=== PATIENT | female | born 1955 | race Caucasian/White ===

== ENCOUNTER 2019-10-10 17:30 | Outpatient (CLI) | payer MEDICARE, SELFPAY ==
--- NOTE | ~2019-10-10 | XR_ITS ---
EXAMINATION: XR knee LT 2V DATE: 10/10/2019 17:53 INDICATION: Left knee pain TECHNIQUE: Two views of the left knee were obtained. COMPARISON: None. FINDINGS: Alignment is normal. No fracture or osteochondral lesion. There is mild tricompartmental os teoarthritis characterized by tiny marginal osteophytes. No joint effusion/synovitis. Soft tissues a re unremarkable. IMPRESSION: 1. No acute osseous abnormality. Reviewed, dictated and finalized at location A.
== END 2019-10-10 17:31 | disposition home or self-care (01) ==
PROVIDERS: PCP Internal Medicine; Visit Provider Nurse Practitioner Family
DX: M25.562 Pain in left knee (principal)
CPT/HCPCS: 73560

== ENCOUNTER 2020-03-06 10:52 | Emergency (ER) | payer MEDICARE, SELFPAY ==
[2020-03-06] VITALS (12 sets, daily range): BP systolic 119–150; BP diastolic 64–95; PULSE 68; RESP 20; TEMP 36.9; O2SAT 94–100
--- NOTE | ~2020-03-06 | XR_ITS ---
EXAMINATION: XR chest 1V portable EXAM DATE: 03/06/2020 12:24 INDICATION: Cough and shortness of breath. Weakness. TECHNIQUE: Portable AP frontal chest x-ray was obtained. Comparison is made to prior examination from 05/20/2015. FINDINGS: Relatively low lung volume with some linear right perihilar, left infrahilar opacities prob ably atelectasis. Some pulmonary vascular crowding. Cardiomediastinal silhouette is normal. No confl uent consolidation, pneumothorax or pleural effusion suspected. Cervical fusion hardware. There are mild bony degenerative changes. IMPRESSION: Some linear bibasilar opacities probably atelectasis. Reviewed, dictated and finalized at location A. ICULUM AND ASSESSMENT DIRECTOR
--- NOTE | ~2020-03-06 | CT_ITS ---
EXAMINATION: CT abdomen pelvis w con EXAM DATE: 03/06/2020 14:33 INDICATION: Upper abdominal pain, vomiting . TECHNIQUE: Spiral CT of the abdomen and pelvis was performed following intravenous injection of 100 m L Omnipaque 350. Axial, coronal and sagittal images were reviewed. The dose-length product (DLP) fo r this examination was 903.35 mGy-cm. The exposure was tailored according to patient size (auto mA e xposure control), and iterative reconstruction (ASIR) was used as additional dose reduction technique . There is no prior study for comparison. FINDINGS: The liver, spleen, adrenal glands and pancreas are unremarkable. Gallbladder is unremarkab le. No biliary obstruction. Portal and splenic veins are patent. Kidneys enhance symmetrically. T here is no hydronephrosis. The uterus is unremarkable. The bladder is unremarkable. There is no retroperitoneal or pelvic lymphadenopathy. There is mild scattered arteriosclerotic disease. The appendix is normal. There is small sliding gastroesophageal hiatal hernia. There is colonic flu id, correlate for diarrhea. No free intraperitoneal gas. The heart is normal in size. There are no pericardial or pleural effusions. Dependent bibasilar airspace disease most likely atelectasis. There are no osteoblastic or osteolytic lesions identified. Mild lumbar dextroscoliosis. IMPRESSION: 1. Colonic fluid, correlate for diarrhea. 2. Bibasilar dependent subsegmental atelectasis. Reviewed, dictated and finalized at location A. SSEAU CONSULTANT
--- NOTE | 2020-03-06 11:25 | PC.NURSE ---
resting on stretcher. all checked in. on BP and O2 monitors. waiting for further orders from provider. call light in reach. updated on expected wait time.
--- NOTE | 2020-03-06 12:00 | ECG_ITS ---
Measurements Intervals [place] Rate: 64 P: 114 AK: 138 QRS: -18 QRSD: 95 T: -27 QT: 406 QTc: 421 Interpretive Statements SINUS RHYTHM INCOMPLETE RIGHT BUNDLE BRANCH BLOCK LOW QRS VOLTAGE IN LIMB LEADS BORDERLINE ST-T WAVE ABNORMALITY- DIFFUSE LEADS BASELINE WANDER- I, III, AVL, V4-V6 BORDERLINE ECG Electronically Signed On 03-06-2020 14:19:46 HAND WOODWORKING SANDER by Vince Mcgrath D.O.
[2020-03-06] MEDS: ONDANSETRON INJ 4 MG/2 ML VIAL IV PUSH (12:08)
[2020-03-06] MEDS: LACTATED RINGERS 1,000 ML 999 ML IV CONT (12:08)
[2020-03-06 12:38] LABS: Basophils Percent Auto 0.3 % (0.2-1.2); Eosinophils Percent Auto 0.3 % (0-4.4); Hematocrit 43.2 % (37.0-47.0); Hemoglobin 14.8 g/dL (12.0-15.0); Immature Granulocyte Absolute 0.01 K/mm3 (0.00-0.031); Immature Granulocyte Percent A 0.3 % (0-0.5); Lymphocytes Absolute Auto 0.87 K/mm3 (0.9-3.2); Lymphocytes Percent Auto 23.4 % (18.3-44.2); Mean Corpuscular HGB Conc 34.3 g/dl (32-36); Mean Corpuscular Volume 84.5 fl (80-100); Mean Platelet Volume 11.9 fl (7.4-10.4); Monocytes Absolute Auto 0.6 K/mm3 (0.1-0.6); Monocytes Percent Auto 17.2 % (2.6-8.5); Neutrophils Absolute Auto 2.2 K/mm3 (1.3-6.7); Neutrophils Percent Auto 58.5 % (45.5-73.1); Platelet Count Result 116 k/mm3 (150-375); Red Blood Count 5.11 M/mm3 (4.2-5.4); Red Cell Distribution Width 13.1 % (11.5-14.5); White Blood Count 3.7 K/mm3 (4.5-10.0)
[2020-03-06 12:48] LABS: INR 0.9
[2020-03-06 12:49] LABS: Partial Thromboplastin Time 29.2 SECONDS (22.3-36.8)
[2020-03-06 12:52] LABS: Alanine Aminotransferase 25 U/L (4-35); Albumin Level 4.4 g/dL (3.5-5.1); Alkaline Phosphatase 113 U/L (38-126); Anion Gap 13 mmol/L (8-16); Aspartate Amino Transferase 34 U/L (14-36); Bilirubin,Total 0.5 mg/dL (0.2-1.3); Blood Urea Nitrogen 15 mg/dL (7-17); Calcium 9.1 mg/dL (8.4-10.2); Carbon Dioxide 24 mmol/L (22-30); Chloride 100 mmol/L (98-107); Estimated CRCL calculation 58 ml/min; Estimated Glomerular Filt Rate 56; Glucose 117 mg/dL (65-105); Lipase 177 U/L (23-300); Magnesium 1.8 mg/dL (1.6-2.3); Potassium 3.6 mmol/L (3.4-5.0); Sodium 137 mmol/L (137-145)
--- NOTE | 2020-03-06 13:19 | PC.NURSE ---
called chem, added Trop baseline 1316
[2020-03-06 13:52] LABS: Add Urine Microscopic? YES; Appearance Urine Clear (Clear); Bacteria Urine 2+ /hpf; Bilirubin Urine Negative (Negative); Blood Urine Negative (Negative); Color Urine Yellow (Yellow); Glucose Urine UA Negative (Negative); Ketones Urine Trace mg/dL (Negative); Leukocyte Esterase Ur 3+ LEU/UL (Negative); Mucus Urine Rare /lpf; Nitrate Urine Negative (Negative); Protein Urine Negative (Negative); Specific Grav Ur 1.014 (1.001-1.035); Squamous Epithelial Cell Urine Occasional /hpf (Few); Transitional Epi Cells Urine Rare /hpf (None Seen); Urobilinogen Urine Negative mg/dL (<2.0); WBC Urine 21-30 /hpf
[2020-03-06 13:58] LABS: Troponin I < 0.012 ng/mL (0.000-0.034)
--- NOTE | 2020-03-06 14:03 | ED.NAVMDI ---
HPI - Nausea/Vomiting/Diarrhea General Chief complaint: Nausea/Vomiting/Diarrhea Stated complaint: abd pain/vomiting Time Seen by Provider: 03/06/20 11:24 Source: patient Mode of arrival: ambulatory Limitations: no limitations History of Present Illness HPI Narrative: This patient is a 64 year old female who presents for evaluation nausea, vomiting and diarrhea. She developed nausea and diarrhea Monday. She states she has been unable to eat or drink anything since yesterday when she developed vomiting. She has constant upper abdominal pain. She also reports mild cough and sob but she denies chest pain. She has associated weakness. She states some family members were found to be positive for Covid 1 week ago. Related Data Allergies Allergy/AdvReac Type Severity Reaction Status Date / Time No Known Allergies Allergy Unverified 03/06/20 11:38 Review of Systems Review of Systems: All systems reviewed & are unremarkable except as noted in HPI and below Constitutional: Constitutional: Denies chills and Reports fever(s) Respiratory: Respiratory: Reports cough and Reports dyspnea Gastrointestinal: Gastrointestinal: Reports abdominal pain, Reports diarrhea, Reports nausea and Reports vomiting [facility] Family History Family History (Updated 12/11/17 @ 11:12 by DOCTOR UNKNOWN) Grandparent Diabetes mellitus Sibling Patient's brother is Social History Social History (Updated 03/06/20 @ 09:34 by Muna aSlazar [facility]) Smoking status: Former smoker Alcohol intake: current Exam Const: General: alert and ill appearing Orientation/consciousness: patient oriented x3 HENMT: Head: normocephalic and atraumatic Face and sinus: face symmetric Throat: posterior oropharynx normal, tonsils normal and uvula midline Eyes: EOM: EOMs intact bilaterally Chest: Chest palpation & inspection: normal inspection of the chest Resp: Effort & Inspection: normal respiratory effort and no retractions Auscultation: clear to auscultation bilaterally Cardio: Rate: regular rate Rhythm: regular rhythm Heart sounds: no murmurs GI: GI Palp: Yes Soft to palpation, Yes Tenderness to palpation present (GI) (epigastric), No Guarding due to palpation present (GI), No Rigid due to palpation and No Rebound tenderness present Skin: General skin exam: normal color Rashes: no rashes Neuro: General: patient oriented x3 and moves all extremities Course Reevaluation(s) Reevaluation #1: I discussed with patient that she will be discharged home. She likely has covid. She is able to tolerate fluids. Date: 03/06/20 Time: 15:38 Vital Signs Vital signs: Vital Signs Temperature 98.4 F 03/06/20 11:15 Pulse Rate 68 03/06/20 11:15 Respiratory Rate 20 03/06/20 11:15 Blood Pressure 125/64 03/06/20 11:15 Pulse Oximetry 100 03/06/20 11:15 Temperature 98.4 F 03/06/20 11:15 Pulse Rate 68 03/06/20 11:15 Respiratory Rate 03/06/20 11:15 Blood Pressure 149/74 H 03/06/20 14:25 Pulse Oximetry 98 03/06/20 12:15 MDM - Nausea/Vomiting/Diarrhea Lab Data Attestation: I reviewed the patient's lab results. Result diagrams: 03/06/20 12:05 03/06/20 12:05 Labs: Lab Results 03/06/20 03/06/20 03/06/20 Range/Units 12:05 12:05 12:05 WBC 3.7 L (4.5-10.0) K/mm3 RBC 5.11 (4.2-5.4) M/mm3 Hgb 14.8 (12.0-15.0) g/dL Hct 43.2 (37.0-47.0) % MCV 84.5 (80-100) fl MCH 29.0 (26-34) pg MCHC 34.3 (32-36) g/dl RDW 13.1 (11.5-14.5) % Plt Count 116 L (150-375) k/mm3 MPV 11.9 H (7.4-10.4) fl Immature Gran % (Auto) 0.3 (0-0.5) % Neut % (Auto) 58.5 (45.5-73.1) % Lymph % (Auto) 23.4 (18.3-44.2) % [place] % (Auto) 17.2 H (2.6-8.5) % Eos % (Auto) 0.3 (0-4.4) % Baso % (Auto) 0.3 (0.2-1.2) % Lymph # (Auto) 0.87 L (0.9-3.2) K/mm3 [place] # (Auto) 0.6 (0.1-0.6) K/mm3 Eos # (Auto) 0.0 (0-0.3) K/mm
--- NOTE | 2020-03-06 14:26 | PC.NURSE ---
patient to CT via wheelchair.
--- NOTE | 2020-03-06 14:37 | PC.NURSE ---
patient back in room after CT. no change in condition. waiting for CT results. patient updated on expected wait time.
[2020-03-08 22:23] LABS: SARS-CoV-2 RNA PCR Positive
== END 2020-03-06 16:00 | disposition home or self-care (01) ==
PROVIDERS: Emergency Provider General Practice; PCP Internal Medicine
DX: U07.1 COVID-19 (principal); R11.2 Nausea with vomiting, unspecified; R19.7 Diarrhea, unspecified; N39.0 Urinary tract infection, site not specified; Z87.891 Personal history of nicotine dependence; I45.10 Unspecified right bundle-branch block; R94.31 Abnormal electrocardiogram [ECG] [EKG]; R10.10 Upper abdominal pain, unspecified
CPT/HCPCS: 36415; 71045; 74177; 80053; 81001; 83605; 83690; 83735; 84484; 85025; 85610; 85730; 87086; 87088; 87635; 87804; 93005; 96361; 96374; 99284; C9803; J2405; J7120; Q9967; U0003

== ENCOUNTER 2020-03-14 11:43 | Emergency (ER) | payer MEDICARE, SELFPAY ==
[2020-03-14 11:48] VITALS: BP 147/79; PULSE 82; RESP 18; TEMP 36.1; O2SAT 94
[2020-03-14 12:04] LABS: Basophils Absolute Auto 0.1 K/mm3 (0.0-0.1); Basophils Percent Auto 0.5 % (0.2-1.2); Eosinophils Absolute Auto 0.1 K/mm3 (0-0.3); Eosinophils Percent Auto 1.3 % (0-4.4); Hematocrit 43.5 % (37.0-47.0); Immature Granulocyte Absolute 0.12 K/mm3 (0.00-0.031); Immature Granulocyte Percent A 1.2 % (0-0.5); Lymphocytes Absolute Auto 1.95 K/mm3 (0.9-3.2); Lymphocytes Percent Auto 20.2 % (18.3-44.2); Mean Corpuscular HGB Conc 34.5 g/dl (32-36); Mean Corpuscular Hemoglobin 28.7 pg (26-34); Mean Corpuscular Volume 83.2 fl (80-100); Mean Platelet Volume 10.2 fl (7.4-10.4); Monocytes Absolute Auto 0.9 K/mm3 (0.1-0.6); Monocytes Percent Auto 9.2 % (2.6-8.5); Neutrophils Absolute Auto 6.5 K/mm3 (1.3-6.7); Neutrophils Percent Auto 67.6 % (45.5-73.1); Platelet Count Result 295 k/mm3 (150-375); Red Blood Count 5.23 M/mm3 (4.2-5.4); White Blood Count 9.7 K/mm3 (4.5-10.0)
[2020-03-14 12:20] LABS: Alanine Aminotransferase 22 U/L (4-35); Albumin Level 4.1 g/dL (3.5-5.1); Alkaline Phosphatase 134 U/L (38-126); Anion Gap 16 mmol/L (8-16); Aspartate Amino Transferase 29 U/L (14-36); Blood Urea Nitrogen 14 mg/dL (7-17); Calcium 9.5 mg/dL (8.4-10.2); Carbon Dioxide 22 mmol/L (22-30); Chloride 102 mmol/L (98-107); Estimated CRCL calculation 64 ml/min; Estimated Glomerular Filt Rate > 60; Glucose 121 mg/dL (65-105); Lipase 159 U/L (23-300); Potassium 3.5 mmol/L (3.4-5.0); Sodium 140 mmol/L (137-145)
--- NOTE | 2020-03-14 12:38 | ED.GENADULT ---
HPI - General Adult General Chief complaint: Nausea/Vomiting/Diarrhea Stated complaint: vomiting Time Seen by Provider: 03/14/20 12:14 Source: patient History of Present Illness HPI narrative: Patient is 64 years old white female presents with nausea and vomiting. Patient is telling me that she cannot keep anything down since February 28. COVID-19 was positive on March 06. Patient came to our emergency room on March 06 with the same symptoms, CAT scan of the abdomen and pelvis at that time showed no acute abnormalities. Patient was discharged on Pepcid, Keflex and Zofran. Patient denies any fever, chills, coughing or shortness of breath. Related Data Allergies Allergy/AdvReac Type Severity Reaction Status Date / Time No Known Allergies Allergy Unverified 03/14/20 11:52 Review of Systems Review of Systems: Narrative: CONSTITUTIONAL: Denies fever, chills, or sweats. CARDIOVASCULAR: Denies chest pain, palpitations, or edema. RESPIRATORY: Denies cough or dyspnea. GASTROINTESTINAL: Nausea and vomiting GENITOURINARY: Denies dysuria or hematuria. SKIN: Denies rash or itching. MUSCULOSKELETAL: Denies back pain, joint pain, patient complaining of myalgia NEUROLOGIC: Patient also complaining of headache, and general weakness PSYCHIATRIC: Denies anxiety or depression. [facility] Past Medical History Medical History (Updated 03/14/20 @ 14:00 by Teddy Bustos MD) COVID-19 virus infection Hypertension Family History Family History Grandparent Diabetes mellitus Sibling Patient's brother is Social History Social History Smoking status: Former smoker Alcohol intake: current Gender identity (if verbalized by the patient): Female Exam Narrative: Exam Narrative: General appearance: Well-developed, well-nourished, looks weak Skin: Normal color Head: Normocephalic, nontraumatic Eyes: Clear conjunctiva ENT: Oropharynx normal, ears normal, nose normal Neck: Supple, nontender Chest and respiratory: Airway patent, no respiratory distress, no accessory muscle use Heart: Regular rate/rhythm Abdomen: Soft, mild diffuse tenderness upper abdomen, no organomegaly, quiet bowel sounds Vascular: Normal peripheral pulses, normal capillary refill. Musculoskeletal: Normal range of motion, nontender back Neurologic: Alert and oriented ?3, SHIPPING HELPER is normal as tested, no gross motor deficit Course Course Emergency Course: Stable Reevaluation(s) Reevaluation #1: Patient feeling much better, is able to keep fluid down. Date: 03/14/20 Time: 14:03 Vital Signs Vital signs: Vital Signs Temperature 36.1 C L 03/14/20 11:48 Pulse Rate 82 03/14/20 11:48 Respiratory Rate 18 03/14/20 11:48 Blood Pressure 147/79 H 03/14/20 11:48 Pulse Oximetry 94 03/14/20 11:48 Temperature 36.1 C L 03/14/20 11:48 Pulse Rate 78 03/14/20 14:16 Respiratory Rate 18 03/14/20 14:16 Blood Pressure 122/68 03/14/20 14:16 Pulse Oximetry 99 03/14/20 14:16 Medical Decision Making MDM Narrative Medical decision making narrative: Patient nausea and vomiting high likely secondary to COVID-19 infection. Labs, IV fluid ordered. Oral food and drink challenge ordered. Further plan to follow Differential Diagnosis Differential Diagnosis: Viral gastroenteritis, electrolyte imbalance, dehydration, COVID-19 infection syndrome Vital Signs Vital Signs: Vital Signs Temperature 36.1 C L 03/14/20 11:48 Pulse Rate 82 03/14/20 11:48 Respiratory Rate 18 03/14/20 11:48 Blood Pressure 147/79 H 03/14/20 11:48 Pulse Oximetry 94 03/14/20 11
[2020-03-14] MEDS: ONDANSETRON INJ 4 MG/2 ML VIAL IV PUSH (12:54)
[2020-03-14] MEDS: LORazepam INJ (*CRX) 2 MG/ML VIAL 0.5 MG IV PUSH (12:54)
[2020-03-14] MEDS: SODIUM CHLORIDE 0.9% IV 1,000 ML 999 ML IV CONT (12:55)
[2020-03-14 12:57] VITALS: BP 132/78; PULSE 78; RESP 18; O2SAT 99
[2020-03-14 13:49] LABS: Add Urine Microscopic? YES; Appearance Urine Clear (Clear); Bilirubin Urine Negative (Negative); Blood Urine Negative (Negative); Color Urine Yellow (Yellow); Glucose Urine UA Negative (Negative); Ketones Urine 1+ mg/dL (Negative); Leukocyte Esterase Ur Negative LEU/UL (Negative); Mucus Urine Few /lpf; Nitrate Urine Negative (Negative); Protein Urine 1+ mg/dL (Negative); RBC Urine 0-2 /hpf (0-2); Squamous Epithelial Cell Urine Occasional /hpf (Few); Transitional Epi Cells Urine Rare /hpf (None Seen); WBC Urine 0-3 /hpf
[2020-03-14 14:16] VITALS: BP 122/68; PULSE 78; RESP 18; O2SAT 99
== END 2020-03-14 14:19 | disposition home or self-care (01) ==
PROVIDERS: Emergency Provider Emergency Medicine; PCP Internal Medicine
DX: U07.1 COVID-19 (principal); R11.2 Nausea with vomiting, unspecified; I10 Essential (primary) hypertension; Z87.891 Personal history of nicotine dependence
CPT/HCPCS: 36415; 80053; 81001; 83690; 85025; 96361; 96374; 96375; 99284; J2060; J2405; J7030

== ENCOUNTER 2020-04-13 10:46 | Outpatient (CLI) | payer MEDICARE, SELFPAY ==
[2020-04-13 11:34] LABS: Basophils Absolute Auto 0.1 K/mm3 (0.0-0.1); Basophils Percent Auto 0.9 % (0.2-1.2); Eosinophils Absolute Auto 0.4 K/mm3 (0-0.3); Eosinophils Percent Auto 4.4 % (0-4.4); Hematocrit 42.3 % (37.0-47.0); Hemoglobin 14.2 g/dL (12.0-15.0); Immature Granulocyte Absolute 0.03 K/mm3 (0.00-0.031); Immature Granulocyte Percent A 0.4 % (0-0.5); Lymphocytes Absolute Auto 2.55 K/mm3 (0.9-3.2); Lymphocytes Percent Auto 32.2 % (18.3-44.2); Mean Corpuscular HGB Conc 33.6 g/dl (32-36); Mean Corpuscular Hemoglobin 29.5 pg (26-34); Mean Corpuscular Volume 87.9 fl (80-100); Mean Platelet Volume 10.9 fl (7.4-10.4); Monocytes Absolute Auto 0.8 K/mm3 (0.1-0.6); Neutrophils Absolute Auto 4.1 K/mm3 (1.3-6.7); Neutrophils Percent Auto 52.1 % (45.5-73.1); Platelet Count Result 258 k/mm3 (150-375); Red Blood Count 4.81 M/mm3 (4.2-5.4); Red Cell Distribution Width 15.3 % (11.5-14.5); White Blood Count 7.9 K/mm3 (4.5-10.0)
[2020-04-13 11:52] LABS: Alanine Aminotransferase 42 U/L (4-35); Alkaline Phosphatase 100 U/L (38-126); Anion Gap 7 mmol/L (8-16); Aspartate Amino Transferase 40 U/L (14-36); Bilirubin,Total 0.9 mg/dL (0.2-1.3); Blood Urea Nitrogen 10 mg/dL (7-17); Calcium 9.5 mg/dL (8.4-10.2); Carbon Dioxide 28 mmol/L (22-30); Chloride 106 mmol/L (98-107); Cholesterol 201 mg/dL (0-200); Estimated Glomerular Filt Rate > 60; Glucose 122 mg/dL (65-105); HDL Direct 41 mg/dL; Sodium 141 mmol/L (137-145); Triglycerides 215 mg/dL (<150)
[2020-04-13 12:01] LABS: LDL Cholesterol Direct 121 mg/dL
[2020-04-13 12:56] LABS: Potassium 4.2 mmol/L (3.4-5.0)
[2020-04-14 11:36] LABS: Hemoglobin A1C 5.4 % (<5.7)
== END 2020-04-13 10:47 | disposition home or self-care (01) ==
PROVIDERS: PCP Internal Medicine; Referring Provider Clinical Nurse Specialist; Visit Provider Nurse Practitioner
DX: R73.09 Other abnormal glucose (principal); Z13.228 Encounter for screening for other metabolic disorders; Z13.220 Encounter for screening for lipoid disorders; I10 Essential (primary) hypertension
CPT/HCPCS: 36415; 80053; 80061; 83036; 85025

== ENCOUNTER 2020-05-20 08:44 | Outpatient (CLI) | payer MEDICARE, SELFPAY ==
--- NOTE | ~2020-05-20 | DEXA_ITS ---
Bone Density Report Name: Makenzie Blanco Age: 64 Sex: Female Ethnicity: White Date of : 1955 Indication: postmenopausal; height loss; Referring Provider: Leslie Bassett Study: Bone densitometry was performed. Exam Date: May 20, 2020 Accession number: [id number] Bone Density: Region BMD T-score Z-score Classification AP Spine (L1-L4) 0.948 -0.9 0.8 Normal Femoral Neck (Left) 0.804 -0.4 1.0 Normal Total Hip (Left) 0.939 0.0 1.1 Normal Total Hip Bilateral Avg 0.922 -0.2 1.0 Normal Femoral Neck (Right) 0.806 -0.4 1.0 Normal Total Hip (Right) 0.905 -0.3 0.8 Normal World Health Organization criteria for BMD impression classify patients as: Normal (T-score at or above -1.0), Osteopenia (T-score between -1.0 and -2.5), or Osteoporosis (T-score at or below -2.5). 10-year Fracture Risk: FRAX not reported because: All T-scores for Spine Total, Hip Total, Femoral Neck at or above -1.0 Previous Exams: Region Exam Age BMD T-score BMD Change BMD Change Date g/cm2 vs Baseline vs Previous AP Spine(L1-L4) 05/20/2020 64 0.948 -0.9 -0.082(-7.9%)# -0.082(-7.9%)# 09/03/2008 52 1.030 -0.2 Total Hip(Left) 05/20/2020 64 0.939 0.0 -0.139(-12.9%) -0.139(-12.9%) 09/03/2008 52 1.077 1.1 Total Hip(Right) 05/20/2020 64 0.905 -0.3 -0.142(-13.5%) -0.142(-13.5%) 09/03/2008 52 1.046 0.9 *Denotes significance at 95% confidence level, LSC for AP Spine = 0.022 g/cm2, LSC for Total Hip = 0.027 g/cm2 Clinical Information Provided by Patient: Patient maximum height was 66 Menopause Age: 41 No regular weight bearing exercise Onset of menses at age 17 Number of children 0 Impression: The patient has normal bone mass. No significant bone loss was observed. Discussion: BONE DENSITY IS ABOVE THE MINIMUM DESIRABLE LEVEL AT ALL SKELETAL SITES TESTED. This patient?s bone mineral density is above the minimum desirable level (T-score -1.0 or better) at all sites measured. The patient should follow a healthful lifestyle (good nutrition with adequate calcium and vitamin D, and appropriate weight-bearing exercise). Follow-Up: Consider repeating this study in 5 years or sooner if there is some new clinical indication. Reported by: DOHS on 05/20/2020 9:06:00 AM. Reviewed, dictated and finalized at location Sandra CUMMINGS
--- NOTE | ~2020-05-20 | MM_ITS ---
EXAMINATION: MM screening [facility] BI w adelia HISTORY: Screening mammogram TECHNIQUE: Craniocaudal and mediolateral oblique 3-D tomosynthesis images were obtained and synthetic 2-D images were generated. CAD analysis was submitted and interpreted. COMPARISON: 09/03/2008 BREAST PARENCHYMAL COMPOSITION: There are scattered areas of fibroglandular density. FINDINGS: There is no evidence of suspicious mass, calcification, or architectural distortion to sugg est malignancy in either breast. There has been no suspicious interval change. IMPRESSION: 1. No mammographic evidence of malignancy. 2. Recommend routine screening mammography in one year. BI-RADS Category 1: Negative Reviewed, dictated and finalized at location A. RANS SERVICES SPECIALIST
== END 2020-05-20 08:45 | disposition home or self-care (01) ==
LOC: ANHIMG 08:47
PROVIDERS: PCP Internal Medicine; Visit Provider Clinical Nurse Specialist
DX: Z12.31 Encounter for screening mammogram for malignant neoplasm of breast (principal); Z78.0 Asymptomatic menopausal state
CPT/HCPCS: 77063; 77067; 77080

== ENCOUNTER 2020-10-17 11:42 | Outpatient (CLI) | payer MEDICARE, SELFPAY ==
[2020-10-17 12:06] LABS: Anion Gap 9 mmol/L (8-16); Blood Urea Nitrogen 11 mg/dL (7-17); Calcium 9.6 mg/dL (8.4-10.2); Carbon Dioxide 26 mmol/L (22-30); Chloride 106 mmol/L (98-107); Estimated Glomerular Filt Rate 50; Glucose 114 mg/dL (65-105); Potassium 4.3 mmol/L (3.4-5.0); Sodium 141 mmol/L (137-145)
== END 2020-10-17 11:43 | disposition home or self-care (01) ==
PROVIDERS: PCP Internal Medicine; Visit Provider Clinical Nurse Specialist
DX: I10 Essential (primary) hypertension (principal)
CPT/HCPCS: 36415; 80048

== ENCOUNTER 2021-04-29 11:34 | Outpatient (CLI) | payer MEDICARE, SELFPAY ==
[2021-04-29 12:04] LABS: Basophils Absolute Auto 0.1 K/mm3 (0.0-0.1); Basophils Percent Auto 0.9 % (0.2-1.2); Eosinophils Absolute Auto 0.2 K/mm3 (0-0.3); Eosinophils Percent Auto 2.9 % (0-4.4); Hematocrit 39.6 % (37.0-47.0); Hemoglobin 13.3 g/dL (12.0-15.0); Immature Granulocyte Absolute 0.03 K/mm3 (0.00-0.031); Immature Granulocyte Percent A 0.4 % (0-0.5); Lymphocytes Absolute Auto 2.53 K/mm3 (0.9-3.2); Lymphocytes Percent Auto 32.1 % (18.3-44.2); Mean Corpuscular HGB Conc 33.6 g/dl (32-36); Mean Corpuscular Hemoglobin 28.8 pg (26-34); Mean Corpuscular Volume 85.7 fl (80-100); Monocytes Absolute Auto 0.6 K/mm3 (0.1-0.6); Monocytes Percent Auto 7.1 % (2.6-8.5); Neutrophils Absolute Auto 4.5 K/mm3 (1.3-6.7); Neutrophils Percent Auto 56.6 % (45.5-73.1); Platelet Count Result 235 k/mm3 (150-375); Red Blood Count 4.62 M/mm3 (4.2-5.4); Red Cell Distribution Width 13.5 % (11.5-14.5); White Blood Count 7.9 K/mm3 (4.5-10.0)
[2021-04-29 12:19] LABS: Alanine Aminotransferase 20 U/L (4-35); Albumin Level 4.2 g/dL (3.5-5.1); Alkaline Phosphatase 106 U/L (38-126); Anion Gap 12 mmol/L (8-16); Aspartate Amino Transferase 27 U/L (14-36); Bilirubin,Total 0.7 mg/dL (0.2-1.3); Blood Urea Nitrogen 12 mg/dL (7-17); Calcium 9.5 mg/dL (8.4-10.2); Carbon Dioxide 23 mmol/L (22-30); Chloride 104 mmol/L (98-107); Cholesterol 165 mg/dL (0-200); Estimated Glomerular Filt Rate 50; Glucose 120 mg/dL (65-110); HDL Direct 35 mg/dL; Potassium 4.3 mmol/L (3.4-5.0); Sodium 139 mmol/L (137-145); Triglycerides 137 mg/dL (<150)
[2021-04-29 12:29] LABS: LDL Cholesterol Direct 94 mg/dL
== END 2021-04-29 11:35 | disposition home or self-care (01) ==
PROVIDERS: PCP Internal Medicine; Visit Provider Clinical Nurse Specialist
DX: I10 Essential (primary) hypertension (principal); E55.9 Vitamin D deficiency, unspecified
CPT/HCPCS: 36415; 80053; 80061; 82306; 85025

== ENCOUNTER 2021-09-02 09:37 | Outpatient (CLI) | payer MEDICARE, SELFPAY ==
--- NOTE | ~2021-09-02 | MM_ITS ---
EXAMINATION: MM screening [facility] BI w adelia HISTORY: Screening mammogram TECHNIQUE: Craniocaudal and mediolateral oblique 3-D tomosynthesis images were obtained and synthetic 2-D images were generated. CAD analysis was submitted and interpreted. COMPARISON: 05/20/2020, 09/03/2008 BREAST PARENCHYMAL COMPOSITION: There are scattered areas of fibroglandular density. FINDINGS: There is no suspicious mass, calcification, or architectural distortion to suggest malignan cy in either breast. There has been no suspicious interval change. IMPRESSION: 1. No mammographic evidence of malignancy. 2. Recommend routine screening mammography in one year. BI-RADS Category 1: Negative Reviewed, dictated and finalized at location A.
== END 2021-09-02 09:38 | disposition home or self-care (01) ==
PROVIDERS: PCP Internal Medicine; Visit Provider Nurse Practitioner
DX: Z12.31 Encounter for screening mammogram for malignant neoplasm of breast (principal)
CPT/HCPCS: 77063; 77067

== ENCOUNTER 2021-12-24 22:48 | Observation (INO) | payer MEDICARE, SELFPAY ==
--- NOTE | ~2021-12-24 | CT_ITS ---
EXAMINATION: CT abdomen pelvis wo con DATE: 12/25/2021 02:28 INDICATION: Epigastric abdominal pain. Nausea, vomiting, diarrhea. TECHNIQUE: Computed tomography (CT) of the abdomen and pelvis was performed without intravenous contr ast. Automated exposure control and iterative reconstruction technique were employed. Exam dose: 953 .04 mGy-cm total exam DLP. COMPARISON: 03/06/2020 CT abdomen pelvis with IV contrast material FINDINGS: There is minimal discoid atelectasis or scarring in the lower lung zones. Normal heart size. No pericardial or pleural effusion. Small sliding hiatal hernia. The liver, gallbladder, bile ducts, pancreas, pancreatic duct and spleen are unremarkable. Normal morphology of the adrenal glands. Chronic mild left renal scarring. No renal mass lesion or urinary tract calculus or hydroureteronephr osis is evident. The urinary bladder is relatively evacuated. Normal caliber of the abdominal aorta. No intraperitoneal or retroperitoneal or pelvic mass lesion or adenopathy or ascites. Uterus and adnexal areas are unremarkable. Normal appendix. No bowel obstruction. No bowel wall thickening, pneumatosis or intraperitoneal free air. Numerous small shotty lymph nodes are noted in the ileocecal area. Moderate degenerative changes of the thoracic and lumbar spine. IMPRESSION: Mild chronic left renal scarring Small sliding hiatal hernia Nonspecific small shotty lymph nodes in the ileocecal region Normal appendix Reviewed, dictated and finalized at Location A. Reviewed, dictated and finalized at location A.
[2021-12-24 22:52] VITALS: BP 142/85; PULSE 80; RESP 18; TEMP 36.6; O2SAT 98
--- NOTE | 2021-12-24 23:00 | ECG_ITS ---
Measurements Intervals [place] Rate: 65 P: 39 NH: 152 QRS: 10 QRSD: 98 T: 15 QT: 430 QTc: 448 Interpretive Statements SINUS RHYTHM INCOMPLETE RIGHT BUNDLE BRANCH BLOCK BORDERLINE ST-T WAVE ABNORMALITY- ANT/INF LEADS BORDERLINE ECG COMPARED TO ECG 03/06/2020 12:11:42 NO SIGNIFICANT CHANGES Electronically Signed On 12-25-2021 7:03:05 CDT by Vince Mcgrath D.O.
[2021-12-24 23:21] LABS: Basophils Absolute Auto 0.1 K/mm3 (0.0-0.1); Basophils Percent Auto 0.7 % (0.2-1.2); Eosinophils Absolute Auto 0.1 K/mm3 (0-0.3); Eosinophils Percent Auto 0.9 % (0-4.4); Hematocrit 45.4 % (37.0-47.0); Hemoglobin 15.4 g/dL (12.0-15.0); Immature Granulocyte Absolute 0.07 K/mm3 (0.00-0.031); Immature Granulocyte Percent A 0.8 % (0-0.5); Lymphocytes Absolute Auto 2.62 K/mm3 (0.9-3.2); Lymphocytes Percent Auto 29.6 % (18.3-44.2); Mean Corpuscular HGB Conc 33.9 g/dl (32-36); Mean Corpuscular Hemoglobin 27.9 pg (26-34); Mean Corpuscular Volume 82.2 fl (80-100); Mean Platelet Volume 10.5 fl (7.4-10.4); Monocytes Absolute Auto 1.5 K/mm3 (0.1-0.6); Monocytes Percent Auto 17.2 % (2.6-8.5); Neutrophils Absolute Auto 4.5 K/mm3 (1.3-6.7); Neutrophils Percent Auto 50.8 % (45.5-73.1); Platelet Count Result 277 k/mm3 (150-375); Red Blood Count 5.52 M/mm3 (4.2-5.4); White Blood Count 8.8 K/mm3 (4.5-10.0)
[2021-12-24 23:32] LABS: Alanine Aminotransferase 18 U/L (6-35); Albumin Level 4.7 g/dL (3.5-5.1); Alkaline Phosphatase 139 U/L (38-126); Anion Gap 22 mmol/L (8-16); Aspartate Amino Transferase 21 U/L (14-36); Bilirubin,Total 0.9 mg/dL (0.2-1.3); Blood Urea Nitrogen 26 mg/dL (7-17); Calcium 9.2 mg/dL (8.4-10.2); Carbon Dioxide 16 mmol/L (22-30); Chloride 99 mmol/L (98-107); Estimated CRCL calculation 31 ml/min; Estimated Glomerular Filt Rate 28; Glucose 120 mg/dL (65-110); Lipase 270 U/L (23-300); Potassium 3.1 mmol/L (3.4-5.0); Sodium 137 mmol/L (137-145)
[2021-12-24 23:57] LABS: SARS-CoV-2 RNA PCR Negative
[2021-12-25] VITALS (8 sets, daily range): BP systolic 120–155; BP diastolic 62–73; PULSE 56–64; RESP 16–20; TEMP 36.1–37.1; O2SAT 97–100; BMI 32.3
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
[2021-12-25] MEDS: SODIUM CHLORIDE 0.9% IV 1,000 ML 999 ML IV CONT ×2 (02:20→03:40)
[2021-12-25] MEDS: ONDANSETRON INJ 4 MG/2 ML VIAL IV PUSH (02:21)
[2021-12-25 02:25] LABS: Appearance Urine Clear (Clear); Bilirubin Urine 2+ (Negative); Color Urine Yellow (Yellow); Glucose Urine UA Negative (Negative); Ketones Urine Trace mg/dL (Negative); Leukocyte Esterase Ur Trace LEU/UL (Negative); Nitrate Urine Negative (Negative); Protein Urine Trace mg/dL (Negative); Urobilinogen Urine 0.2 mg/dL (<2.0); pH Urine 5.5 (5.0-9.0)
[2021-12-25 02:26] LABS: Troponin I < 0.012 ng/mL (0.000-0.034)
[2021-12-25 02:31] LABS: Add Urine Microscopic? YES; Bacteria Urine 1+ /hpf; Blood Urine Trace-Intact (Negative); Mucus Urine Rare /lpf; Squamous Epithelial Cell Urine Rare /hpf (Few); WBC Urine 21-30 /hpf
[2021-12-25] MEDS: POTASSIUM CHLORIDE INJ 40 MEQ in SODIUM CHLORIDE 0.9% IV 500 ML 130 MEQ IVPB (03:40)
[2021-12-25] MEDS: SODIUM CHLORIDE 0.9% IV 1,000 ML 125 ML IV CONT ×3 (05:39→21:12)
--- NOTE | 2021-12-25 05:49 | ADMGEN ---
This patient, Makenzie Blanco, was admitted to [facility] Surg Room 322-02. Patient/family oriented to hospital policies and general routines including ID bracelet, bed and alarms, visiting hours, pain management, procedures, bathroom and other care routines, personal items, smoking policy, room service/diet, and visiting hours. Information on how to activate the Rapid Response Team has been discussed. Patient/Family are encouraged to report perceived risks to care and to ask questions if they do not understand what they are told or what they should do.
[2021-12-25] MEDS: PANTOPRAZOLE SODIUM IV 40 MG VIAL IV PUSH (06:00)
[2021-12-25] MEDS: METOPROLOL SUCCINATE EXT REL 100 MG TABCR BY MOUTH (09:55)
[2021-12-25] MEDS: ACIDOPHILUS/BULGARICUS CHEWABLE TABLET 1 TABLET PO (09:56)
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
[2021-12-25 16:33] LABS: Anion Gap 11 mmol/L (8-16); Blood Urea Nitrogen 19 mg/dL (7-17); Calcium 7.8 mg/dL (8.4-10.2); Carbon Dioxide 20 mmol/L (22-30); Chloride 109 mmol/L (98-107); Estimated CRCL calculation 39 ml/min; Estimated Glomerular Filt Rate 38; Glucose 101 mg/dL (65-110); Potassium 4.1 mmol/L (3.4-5.0); Sodium 140 mmol/L (137-145)
[2021-12-25 19:14] LABS: Toxigenic C. Diff NEGATIVE (NEGATIVE)
[2021-12-25] MEDS: ACETAMINOPHEN 325 MG TABLET 650 MG PO (23:27)
[2021-12-26 01:30] VITALS: BP 131/74; PULSE 58; RESP 20; TEMP 35.8; O2SAT 97
[2021-12-26] MEDS: SODIUM CHLORIDE 0.9% IV 1,000 ML 125 ML IV CONT (05:28)
[2021-12-26 06:00] VITALS: BP 146/70; PULSE 55; RESP 14; TEMP 36.7; O2SAT 97
[2021-12-26 08:29] LABS: Basophils Absolute Auto 0.1 K/mm3 (0.0-0.1); Basophils Percent Auto 0.8 % (0.2-1.2); Eosinophils Absolute Auto 0.2 K/mm3 (0-0.3); Eosinophils Percent Auto 2.3 % (0-4.4); Hematocrit 36.5 % (37.0-47.0); Hemoglobin 11.6 g/dL (12.0-15.0); Immature Granulocyte Absolute 0.12 K/mm3 (0.00-0.031); Immature Granulocyte Percent A 1.6 % (0-0.5); Lymphocytes Absolute Auto 2.71 K/mm3 (0.9-3.2); Lymphocytes Percent Auto 35.1 % (18.3-44.2); Mean Corpuscular HGB Conc 31.8 g/dl (32-36); Mean Corpuscular Hemoglobin 28.5 pg (26-34); Mean Corpuscular Volume 89.7 fl (80-100); Mean Platelet Volume 11.1 fl (7.4-10.4); Monocytes Absolute Auto 0.9 K/mm3 (0.1-0.6); Monocytes Percent Auto 11.9 % (2.6-8.5); Neutrophils Absolute Auto 3.7 K/mm3 (1.3-6.7); Neutrophils Percent Auto 48.3 % (45.5-73.1); Platelet Count Result 172 k/mm3 (150-375); Red Blood Count 4.07 M/mm3 (4.2-5.4); Red Cell Distribution Width 14.6 % (11.5-14.5); White Blood Count 7.7 K/mm3 (4.5-10.0)
[2021-12-26 08:47] LABS: Alanine Aminotransferase 11 U/L (6-35); Albumin Level 2.8 g/dL (3.5-5.1); Alkaline Phosphatase 69 U/L (38-126); Anion Gap 10 mmol/L (8-16); Aspartate Amino Transferase 18 U/L (14-36); Bilirubin,Total 0.4 mg/dL (0.2-1.3); Blood Urea Nitrogen 14 mg/dL (7-17); Carbon Dioxide 18 mmol/L (22-30); Chloride 112 mmol/L (98-107); Estimated CRCL calculation 54 ml/min; Estimated Glomerular Filt Rate 56; Glucose 90 mg/dL (65-110); Magnesium 1.7 mg/dL (1.6-2.3); Potassium 4.1 mmol/L (3.4-5.0); Sodium 140 mmol/L (137-145)
[2021-12-26 09:00] VITALS: PULSE 68
[2021-12-26] MEDS: METOPROLOL SUCCINATE EXT REL 100 MG TABCR BY MOUTH (09:00)
[2021-12-26] MEDS: PANTOPRAZOLE 40 MG TABLET PO (09:01)
[2021-12-26] MEDS: ACIDOPHILUS/BULGARICUS CHEWABLE TABLET 1 TABLET PO (09:01)
--- NOTE | 2021-12-26 13:26 | PM.DS ---
DS: Admitting Diagnosis Discharge Date 12/26/2021 Admitting Diagnosis weakness DS: Discharge Diagnosis Discharge Diagnosis (1) UTI (urinary tract infection): Qualifiers: Hematuria presence: with hematuria Urinary tract infection type: acute cystitis Qualified Code(s): N30.01 - Acute cystitis with hematuria Code(s): N39.0 - Urinary tract infection, site not specified Status: Acute (2) Acute kidney injury: Code(s): N17.9 - Acute kidney failure, unspecified Status: Acute (3) Dehydration: Code(s): E86.0 - Dehydration Status: Acute (4) Hypertension: Qualifiers: Hypertension type: primary hypertension Qualified Code(s): I10 - Essential (primary) hypertension Code(s): I10 - Essential (primary) hypertension Status: Acute DS: Summary Hospital Course Hospital Course: # abdominal pain nausea vomiting and diarrhea Likely acute gastroenteritis.? CT abdomen pelvis without any acute intra-abdominal findings. this has resolved. C diff came back negative stool studies are pending. # diarrhea ongoing since a week.? Stool studies sent pending results. Except C diff which came back negative # SUKHWINDER creatinine of 1.8 on admission.? Baseline creatinine ranging between 0.9-1.1.? Likely prerenal. IV hydration was started and renal failure resolved with this ? #UTI the she doses no urinary symptoms.? Given ceftriaxone in the ED.? Urine culture has been sent.? Lactic acid was normal.? urine cultures pending. Will change ceftriaxone to Omnicef at discharge ?# hypokalemia replace monitor # hypertension? hold losartan and spironolactone. Were DC spironolactone at discharge. Lower losartan to 50 mg at discharge in resumed at discharge # DVT prophylaxis:? heparin subQ # code status full code Time Spent with Patient Time attestation: Total time spent providing and/or coordinating discharge services: 40 minutes Exam Narrative: GENERAL: well-appearing, not in acute distress HEAD: Normocephalic, atraumatic. NECK: Supple. No adenopathy, no masses. RESPIRATORY: Airway patent, respirations nonlabored. Clear to auscultation bilaterally, no rales, rhonchi, wheezing. CARDIOVASCULAR: Regular rate and rhythm without murmurs, rubs, or gallops. Peripheral pulses 2+ and equal bilaterally. ABDOMINAL: Soft, mild diffuse tenderness particularly in the epigastric area, Nondistended, no hepatosplenomegaly. Normoactive BS. MUSCULOSKELETAL: Moves all extremities. Strength/ROM intact without gross deformities. SKIN: Warm, dry, normal color. No rashes. NEURO: A&O X3. Speech clear. Cranial nerves II-XII grossly intact. Steady gait. No ataxic movements. PSYCHIATRIC: Appropriate mood and affect. Normal interaction. DS: Data Data Completed and Pending Labs on day of discharge: Labs from last 24 hours 12/26/21 12/26/21 12/25/21 07:41 07:41 18:10 WBC 7.7 RBC 4.07 L Hgb 11.6 L D Hct 36.5 L MCV 89.7 D MCH 28.5 MCHC 31.8 L RDW 14.6 H Plt Count 172 MPV 11.1 H Immature Gran % (Auto) 1.6 H Neut % (Auto) 48.3 Lymph % (Auto) 35.1 Johnston % (Auto) 11.9 H Eos % (Auto) 2.3 Baso % (Auto) 0.8 Lymph # (Auto) 2.71 Johnston # (Auto) 0.9 H Eos # (Auto) 0.2 Baso # (Auto) 0.1 Abs Immat Gran (auto) 0.12 H Absolute Neuts (auto) 3.7 Absolute Nucleated RBC 0.0 Nucleated RBC % 0.0 % Immature Plt Fraction 4.0 Sodium 140 Potassium 4.1 Chloride 112 H Carbon Dioxide 18 L Anion Gap 10 BUN 14 D Creatinine 1.00 Estim Creat Clear Calc 54 Estimated GFR 56 L Glucose 90 Calcium 8.0 L Magnesium 1.7 Total Bilirubin 0.4 AST 18 ALT 11 Alkaline Phosphatase 69 Total Protein 5.0 L Albumin 2.8 L C. difficile (PCR) Ova & Parasites Pending 12/25/21 12/25/21 18:10 16:15 WBC RBC Hgb Hct MCV MCH MCHC RDW Plt Count MPV Immature Gran % (Auto) Neut % (Aut
== END 2021-12-26 14:10 | disposition home or self-care (01) ==
LOC: ANHED 12-25 04:13 → ANH3MEDSUR 12-25 04:59
PROVIDERS: Emergency Medicine; Physician Assistant; Admitting Provider Internal Medicine; Emergency Provider Emergency Medicine; PCP Internal Medicine; Visit Provider Internal Medicine
DX: N30.01 Acute cystitis with hematuria (principal); N17.9 Acute kidney failure, unspecified; E86.0 Dehydration; I10 Essential (primary) hypertension; K44.9 Diaphragmatic hernia without obstruction or gangrene; R59.9 Enlarged lymph nodes, unspecified; I45.10 Unspecified right bundle-branch block; Z20.822 Contact with and (suspected) exposure to COVID-19; R19.7 Diarrhea, unspecified; R10.9 Unspecified abdominal pain; R51.9 Headache, unspecified; E78.5 Hyperlipidemia, unspecified; E66.9 Obesity, unspecified; Z68.32 Body mass index [BMI] 32.0-32.9, adult; Z86.16 Personal history of COVID-19; Z87.891 Personal history of nicotine dependence; Z79.899 Other long term (current) drug therapy
CPT/HCPCS: 36415; 74176; 80048; 80053; 81001; 83605; 83690; 83735; 84484; 85025; 85055; 87040; 87045; 87077; 87086; 87177; 87186; 87209; 87269; 87272; 87427; 87493; 89055; 93005; 96361; 96365; 96366; 96367; 96375; 96376; 99285; A9270; C9113; C9803; G0378; J0131; J0696; J2405; J3480; J7030; J7040; U0003; U0005

== ENCOUNTER 2022-01-21 10:23 | Outpatient (CLI) | payer MEDICARE, SELFPAY ==
[2022-01-21 10:37] LABS: Basophils Absolute Auto 0.1 K/mm3 (0.0-0.1); Eosinophils Absolute Auto 0.2 K/mm3 (0-0.3); Eosinophils Percent Auto 2.9 % (0-4.4); Hematocrit 38.8 % (37.0-47.0); Hemoglobin 12.7 g/dL (12.0-15.0); Immature Granulocyte Absolute 0.01 K/mm3 (0.00-0.031); Immature Granulocyte Percent A 0.1 % (0-0.5); Lymphocytes Percent Auto 35.7 % (18.3-44.2); Mean Corpuscular HGB Conc 32.7 g/dl (32-36); Mean Corpuscular Hemoglobin 29.1 pg (26-34); Mean Corpuscular Volume 88.8 fl (80-100); Monocytes Absolute Auto 0.8 K/mm3 (0.1-0.6); Monocytes Percent Auto 10.7 % (2.6-8.5); Neutrophils Absolute Auto 3.6 K/mm3 (1.3-6.7); Neutrophils Percent Auto 49.6 % (45.5-73.1); Platelet Count Result 204 k/mm3 (150-375); Red Blood Count 4.37 M/mm3 (4.2-5.4); Red Cell Distribution Width 14.5 % (11.5-14.5); White Blood Count 7.3 K/mm3 (4.5-10.0)
[2022-01-21 11:04] LABS: Alanine Aminotransferase 29 U/L (6-35); Albumin Level 4.1 g/dL (3.5-5.1); Alkaline Phosphatase 106 U/L (38-126); Anion Gap 13 mmol/L (8-16); Aspartate Amino Transferase 34 U/L (14-36); Bilirubin,Total 0.6 mg/dL (0.2-1.3); Blood Urea Nitrogen 14 mg/dL (7-17); Calcium 9.1 mg/dL (8.4-10.2); Carbon Dioxide 26 mmol/L (22-30); Chloride 102 mmol/L (98-107); Estimated Glomerular Filt Rate 56; Glucose 109 mg/dL (65-110); Potassium 4.3 mmol/L (3.4-5.0); Sodium 141 mmol/L (137-145)
[2022-01-21 11:05] LABS: Appearance Urine Clear (Clear); Bilirubin Urine Negative (Negative); Blood Urine Trace-intact (Negative); Color Urine Yellow (Yellow); Glucose Urine UA Negative (Negative); Ketones Urine Negative (Negative); Leukocyte Esterase Ur Trace LEU/UL (Negative); Nitrate Urine Negative (Negative); Protein Urine Negative (Negative); Specific Grav Ur 1.015 (1.001-1.035); Urobilinogen Urine 0.2 mg/dL (<2.0)
[2022-01-21 11:11] LABS: Add Urine Microscopic? YES
[2022-01-21 11:19] LABS: RBC Urine 0-2 /hpf (0-2); Squamous Epithelial Cell Urine Occasional /hpf (Few); WBC Urine 0-3 /hpf
== END 2022-01-21 10:24 | disposition home or self-care (01) ==
PROVIDERS: PCP Internal Medicine; Visit Provider Clinical Nurse Specialist
DX: R74.01 Elevation of levels of liver transaminase levels (principal); N39.0 Urinary tract infection, site not specified; I10 Essential (primary) hypertension
CPT/HCPCS: 36415; 80053; 81001; 85025

== ENCOUNTER → 2022-03-17 11:52 | Outpatient (CLI) | payer MEDICARE, SELFPAY ==
--- NOTE | ~2022-03-17 | XR_ITS ---
XR knee LT 3V DATE: 03/17/2022 12:15 INDICATION: Left knee pain, popping, locking TECHNIQUE: 3 views COMPARISON: 10/10/2019 left knee FINDINGS: There is slight periarticular spurring of the patella. There is mild particular spurring at the medial compartment. Joint spaces appear relatively well preserved. No radiopaque intra-articular loose body or chondrocalcinosis is detected. No fracture or dislocation or joint effusion. No periosteal reaction or bone destruction. IMPRESSION: Mild osteoarthritis Reviewed, dictated and finalized at location B. MICIST IMPRESSION: Mild osteoarthritis
== END ==
PROVIDERS: PCP Clinical Nurse Specialist; Visit Provider Clinical Nurse Specialist
DX: M17.12 Unilateral primary osteoarthritis, left knee (principal)
CPT/HCPCS: 73562

== ENCOUNTER 2022-05-27 09:30 | Outpatient (CLI) | payer MEDICARE, SELFPAY ==
--- NOTE | ~2022-05-27 | XR_ITS ---
EXAMINATION: XR knee RT 2V DATE: 05/27/2022 09:57 INDICATION: Right knee pain TECHNIQUE: Two views of the right knee were obtained. COMPARISON: 07/21/2015 FINDINGS: Alignment is normal. No fracture or osteochondral lesion. There is mild tricompartmental os teoarthritis characterized by tiny marginal osteophytes. No joint effusion/synovitis. Soft tissues a re unremarkable. IMPRESSION: 1. Osteoarthritis without acute osseous abnormality. Reviewed, dictated and finalized at location B. HEMODIALYSIS
== END 2022-05-27 09:31 | disposition home or self-care (01) ==
LOC: ANHIMG 09:33
PROVIDERS: PCP Internal Medicine; Visit Provider Nurse Practitioner Family
DX: M17.11 Unilateral primary osteoarthritis, right knee (principal)
CPT/HCPCS: 73560

== ENCOUNTER 2022-10-25 08:44 | Outpatient (CLI) | payer MEDICARE, SELFPAY ==
[2022-10-25 09:06] LABS: Basophils Absolute Auto 0.1 K/mm3 (0.0-0.1); Eosinophils Absolute Auto 0.2 K/mm3 (0-0.3); Eosinophils Percent Auto 3.2 % (0-4.4); Hematocrit 40.6 % (37.0-47.0); Immature Granulocyte Absolute 0.02 K/mm3 (0.00-0.031); Immature Granulocyte Percent A 0.3 % (0-0.5); Lymphocytes Absolute Auto 2.75 K/mm3 (0.9-3.2); Lymphocytes Percent Auto 37.7 % (18.3-44.2); Mean Corpuscular Hemoglobin 28.8 pg (26-34); Mean Corpuscular Volume 89.8 fl (80-100); Mean Platelet Volume 10.9 fl (7.4-10.4); Monocytes Absolute Auto 0.7 K/mm3 (0.1-0.6); Neutrophils Absolute Auto 3.6 K/mm3 (1.3-6.7); Neutrophils Percent Auto 48.8 % (45.5-73.1); Platelet Count Result 193 k/mm3 (150-375); Red Blood Count 4.52 M/mm3 (4.2-5.4); White Blood Count 7.3 K/mm3 (4.5-10.0)
[2022-10-25 09:18] LABS: Alanine Aminotransferase 27 U/L (6-35); Albumin Level 3.9 g/dL (3.5-5.1); Alkaline Phosphatase 104 U/L (38-126); Anion Gap 2 mmol/L (8-16); Aspartate Amino Transferase 30 U/L (14-36); Bilirubin,Total 0.7 mg/dL (0.2-1.3); Blood Urea Nitrogen 13 mg/dL (7-17); Calcium 8.9 mg/dL (8.4-10.2); Carbon Dioxide 30 mmol/L (22-30); Chloride 104 mmol/L (98-107); Cholesterol 206 mg/dL (0-200); Estimated Glomerular Filt Rate > 60; Glucose 114 mg/dL (65-110); HDL Direct 38 mg/dL; Potassium 4.4 mmol/L (3.4-5.0); Sodium 136 mmol/L (137-145); Triglycerides 170 mg/dL (<150)
[2022-10-25 09:30] LABS: LDL Cholesterol Direct 116 mg/dL
[2022-10-25 09:40] LABS: Vitamin D 25 Hydroxy 55.1 ng/mL
[2022-10-25 16:18] LABS: Hemoglobin A1C 5.5 % (<5.7)
== END 2022-10-25 08:45 | disposition home or self-care (01) ==
LOC: ANHLAB 08:44
PROVIDERS: PCP Internal Medicine; Visit Provider Clinical Nurse Specialist
DX: I10 Essential (primary) hypertension (principal); E55.9 Vitamin D deficiency, unspecified; E78.5 Hyperlipidemia, unspecified; R73.9 Hyperglycemia, unspecified
CPT/HCPCS: 36415; 80053; 80061; 82306; 83036; 85025

== ENCOUNTER 2022-11-02 13:34 | Outpatient (CLI) | payer MEDICARE, SELFPAY ==
--- NOTE | ~2022-11-02 | MM_ITS ---
EXAMINATION: MM screening [facility] BI w adelia HISTORY: Screening TECHNIQUE: Craniocaudal and mediolateral oblique 3-D tomosynthesis images were obtained and synthetic 2-D images were generated. CAD analysis was submitted and interpreted. COMPARISON: Comparison to multiple prior studies sequentially, with oldest reviewed study dated 06/2020. BREAST PARENCHYMAL COMPOSITION: There are scattered areas of fibroglandular density. FINDINGS: There is no evidence of suspicious mass, calcification, or architectural distortion to sugg est malignancy in either breast. There has been no suspicious interval change. IMPRESSION: 1. No mammographic evidence of malignancy. 2. Recommend routine screening mammography in one year. BI-RADS Category 1: Negative Reviewed, dictated and finalized at location A.
== END 2022-11-02 13:35 | disposition home or self-care (01) ==
LOC: ANHIMG 13:35
PROVIDERS: PCP Internal Medicine; Visit Provider Nurse Practitioner
DX: Z12.31 Encounter for screening mammogram for malignant neoplasm of breast (principal)
CPT/HCPCS: 77063; 77067

== ENCOUNTER 2022-11-10 09:10 | Outpatient (CLI) | payer MEDICARE, SELFPAY ==
--- NOTE | ~2022-11-10 | CT_ITS ---
CT Scan of the Chest without Contrast: Clinical Indication: Lung cancer screening, smoking history Technique: Contiguous sections were acquired throughout the chest without intravenous contrast. Dose reduction technique was used on this scan by utilizing automated exposure control and iterative recon struction technique. The dose-length product (DLP) was 175.55 mGy-cm. Findings: There is no evidence of any significant mediastinal, hilar or axillary lymphadenopathy. The mediastin al soft tissues appear normal. There is no evidence of pleural or pericardial effusion. 5 mm right upper lobe groundglass nodule noted (axial image 32). Calcified right upper lobe granuloma noted. Images through the upper abdomen reveal no abnormalities. Impression: Lung RADS 2: Benign appearance. 12 month follow-up screening CT advised. Reviewed, dictated and finalized at location . Impression: Lung RADS 2: Benign appearance. 12 month follow-up screening CT advised.
== END 2022-11-10 09:11 | disposition home or self-care (01) ==
PROVIDERS: PCP Internal Medicine; Visit Provider Nurse Practitioner
DX: Z12.2 Encounter for screening for malignant neoplasm of respiratory organs (principal); Z87.891 Personal history of nicotine dependence
CPT/HCPCS: 71271

== ENCOUNTER 2023-04-04 07:34 | Outpatient (CLI) | payer MEDICARE, SELFPAY ==
[2023-04-04 08:19] LABS: Alanine Aminotransferase 17 U/L (6-35); Albumin Level 4.1 g/dL (3.5-5.1); Alkaline Phosphatase 111 U/L (38-126); Anion Gap 7 mmol/L (8-16); Aspartate Amino Transferase 24 U/L (14-36); Bilirubin,Total 0.8 mg/dL (0.2-1.3); Blood Urea Nitrogen 14 mg/dL (7-17); Calcium 9.5 mg/dL (8.4-10.2); Carbon Dioxide 26 mmol/L (22-30); Chloride 106 mmol/L (98-107); Estimated Glomerular Filt Rate > 60; Glucose 105 mg/dL (65-110); Potassium 4.4 mmol/L (3.4-5.0); Sodium 139 mmol/L (137-145)
== END 2023-04-04 07:35 | disposition home or self-care (01) ==
PROVIDERS: PCP Internal Medicine; Visit Provider Nurse Practitioner
DX: R94.4 Abnormal results of kidney function studies (principal)
CPT/HCPCS: 36415; 80053

== ENCOUNTER 2023-08-03 12:00 | Outpatient (CLI) | payer MEDICARE, SELFPAY ==
--- NOTE | ~2023-08-03 | XR_ITS ---
Right wrist Technique: PA and lateral views were obtained. Clinical History: Pain Findings: No acute fracture or dislocation is seen. Osseous alignment is anatomic. There is mild dege nerative change of the triscaphe joint. Soft tissues are unremarkable. Impression: Mild degenerative change of the triscaphe joint. Reviewed, dictated and finalized at [facility]. Impression: Mild degenerative change of the triscaphe joint.
--- NOTE | ~2023-08-03 | XR_ITS ---
Left wrist Technique: PA and lateral views were obtained. Clinical History: Pain Findings: No acute fracture or dislocation is seen. Osseous alignment is anatomic. There is moderate degenerative change of the triscaphe joint. Soft tissues are unremarkable. Impression: Moderate degenerative change at the triscaphe joint. Reviewed, dictated and finalized at [facility]. Impression: Moderate degenerative change at the triscaphe joint.
== END 2023-08-03 12:01 | disposition home or self-care (01) ==
LOC: ANHIMG 12:01
PROVIDERS: PCP Internal Medicine; Visit Provider Nurse Practitioner Family
DX: M25.532 Pain in left wrist (principal)
CPT/HCPCS: 73100

== ENCOUNTER 2024-03-05 08:27 | Outpatient (CLI) | payer MEDICARE, SELFPAY ==
--- NOTE | ~2024-03-05 | XR_ITS ---
XR ankle RT 2V Ordering provider: Christiane Malave, STAINED GLASS ARTIST-C History: . pain in right foot, ankle and joints of right foot . Comparison: None. FINDINGS: BONES: No acute fracture or dislocation. Calcaneal spur. JOINT SPACES: Normal. SOFT TISSUES: Normal. IMPRESSION: No acute osseous abnormality of the right ankle. Reviewed, dictated and finalized at location A. INSOLE CHANNELER
== END 2024-03-05 08:28 | disposition home or self-care (01) ==
PROVIDERS: PCP Internal Medicine; Visit Provider Nurse Practitioner Family
DX: M79.671 Pain in right foot (principal); M25.571 Pain in right ankle and joints of right foot
CPT/HCPCS: 73600

== ENCOUNTER 2024-03-12 10:19 | Outpatient (CLI) | payer MEDICARE, SELFPAY ==
--- NOTE | ~2024-03-12 | XR_ITS ---
XR foot RT 2V Ordering provider: Christiane Malave, INJECTION MOULDING MACHINE OPERATOR-C History: . Pain in R foot . Comparison: None. FINDINGS: BONES: No acute fracture or dislocation. Calcaneal spur. JOINT SPACES: Narrowing of the proximal and distal interphalangeal joints. No tarsal coalition. SOFT TISSUES: Normal. IMPRESSION: No acute osseous abnormality of the right foot. Mild Osteoarthritic changes of the proximal and distal interphalangeal joints. Reviewed, dictated and finalized at location A. POURER
== END 2024-03-12 10:20 | disposition home or self-care (01) ==
PROVIDERS: PCP Internal Medicine; Visit Provider Nurse Practitioner Family
DX: M19.071 Primary osteoarthritis, right ankle and foot (principal)
CPT/HCPCS: 73620

== ENCOUNTER 2024-05-23 11:03 | Outpatient (CLI) | payer MEDICARE, SELFPAY ==
--- OUTSIDE RECORDS SUMMARY | 2024-05-23 11:31 | XMS_ITS | Clinical Summary ---
Author Organization [facility] Address [address] [place] [id number] Care Team Providers Care Director Of Scientific Research Name Role Phone Unavailable Primary Care Provider Unavailabl e Social History Tobacco Use Types Packs/Day Years Used Date Smoking Tobacco: Never Assessed Comments Unknown Sex and Gender Information Value Date Recorded Sex Assigned at Not on file Legal Sex Female 7:05 PM CDT Gender Identity Not on file Sexual Orientation Not on file Plan of Treatment Health Maintenance Due Date Last Done Comments Colorectal Cancer Screening Colonoscopy (10 Years) 1956 Hepatitis C 1974 DTaP, Tdap and Td Vaccines ( 1 - Tdap) 12/23/1975 Mammogram Screening 1996 Zoster Vaccines (1 of 2) 2006 Dexa Scan (General) 2021 Pneumococcal Vaccine: 65+ Ye ars (1 of 1 - PCV) 2021 COVID-19 Vaccine (2023-2 5 season) 2023 Influenza Adult (#1) 2024 RSV Immunization or 60+ Years (1 - 1-dose 75+ series) 12/23/2031 Meningococcal B Vaccine Aged Out No l onger eligible based on patient's age to complete this topic Meningococcal Vaccine Aged Out No leigh nkechi eligible based on patient's age to complete this topic RSV Immunizations Under 20 Months Aged Out No longer eligible based on patient's age to complete this topic
[2024-05-23 12:13] LABS: Basophils Absolute Auto 0.1 K/mm3 (0.0-0.1); Basophils Percent Auto 0.9 % (0.2-1.2); Eosinophils Absolute Auto 0.3 K/mm3 (0-0.3); Eosinophils Percent Auto 2.9 % (0-4.4); Hematocrit 41.5 % (37.0-47.0); Hemoglobin 13.4 g/dL (12.0-15.0); Immature Granulocyte Absolute 0.03 K/mm3 (0.00-0.031); Immature Granulocyte Percent A 0.3 % (0-0.5); Lymphocytes Absolute Auto 3.86 K/mm3 (0.9-3.2); Lymphocytes Percent Auto 39.8 % (18.3-44.2); Mean Corpuscular HGB Conc 32.3 g/dl (32-36); Mean Corpuscular Volume 86.8 fl (80-100); Mean Platelet Volume 11.6 fl (7.4-10.4); Monocytes Absolute Auto 0.7 K/mm3 (0.1-0.6); Monocytes Percent Auto 7.5 % (2.6-8.5); Neutrophils Absolute Auto 4.7 K/mm3 (1.3-6.7); Neutrophils Percent Auto 48.6 % (45.5-73.1); Platelet Count Result 192 k/mm3 (150-375); Red Blood Count 4.78 M/mm3 (4.2-5.4); Red Cell Distribution Width 14.6 % (11.5-14.5); White Blood Count 9.7 K/mm3 (4.5-10.0)
[2024-05-23 12:30] LABS: Alanine Aminotransferase 19 U/L (6-35); Alkaline Phosphatase 106 U/L (38-126); Anion Gap 11 mmol/L (4-12); Aspartate Amino Transferase 19 U/L (14-36); Bilirubin,Total 0.8 mg/dL (0.2-1.3); Blood Urea Nitrogen 20 mg/dL (7-17); Calcium 9.1 mg/dL (8.4-10.2); Carbon Dioxide 23 mmol/L (22-30); Chloride 106 mmol/L (98-107); Cholesterol 207 mg/dL (0-200); Estimated Glomerular Filt Rate > 60; Glucose 98 mg/dL (65-110); HDL Direct 52 mg/dL; Potassium 4.1 mmol/L (3.4-5.0); Sodium 140 mmol/L (137-145); Triglycerides 127 mg/dL (<150)
[2024-05-23 12:41] LABS: LDL Cholesterol Direct 108 mg/dL
[2024-05-23 13:09] LABS: Vitamin D 25 Hydroxy 39.6 ng/mL
== END 2024-05-23 11:04 | disposition home or self-care (01) ==
PROVIDERS: PCP Internal Medicine; Visit Provider Nurse Practitioner
DX: E78.5 Hyperlipidemia, unspecified (principal); R94.4 Abnormal results of kidney function studies; I10 Essential (primary) hypertension; E55.9 Vitamin D deficiency, unspecified
CPT/HCPCS: 36415; 80053; 80061; 82306; 85025

== ENCOUNTER 2025-01-23 14:55 | Outpatient (CLI) | payer MEDICARE, SELFPAY ==
--- NOTE | ~2025-01-23 | MM_ITS ---
EXAMINATION: MM screening [facility] BI w adelia HISTORY: Screening TECHNIQUE: Craniocaudal and mediolateral oblique 3-D tomosynthesis images were obtained and synthetic 2-D images were generated. CAD analysis was submitted and interpreted. COMPARISON: Comparison to multiple prior studies sequentially, with oldest reviewed study dated , 09/03/2008 BREAST PARENCHYMAL COMPOSITION: There are scattered areas of fibroglandular density. FINDINGS: There is no evidence of suspicious mass, calcification, or architectural distortion to suggest malignancy in either breast. IMPRESSION: 1. No mammographic evidence of malignancy. 2. Recommend routine screening mammography in one year. BI-RADS Category 1: Negative Reviewed, dictated and finalized at location B.
== END 2025-01-23 14:56 | disposition home or self-care (01) ==
LOC: ANHFOHIMG 14:57
PROVIDERS: PCP Internal Medicine; Visit Provider Nurse Practitioner
DX: Z12.31 Encounter for screening mammogram for malignant neoplasm of breast (principal)
CPT/HCPCS: 77063; 77067